=== PATIENT | male | born 1940 | race Caucasian/White ===

== ENCOUNTER 2017-02-17 14:07 | Emergency (ER) | payer OTHER ==
[~2017-02-17] VITALS: Ht 172.7 cm; Wt 80.0 kg
[~2017-02-17 14:07] MED LIST: CALC500T21 PO; CO-E50CA PO; FISH500C PO; GLUCTAB6 PO; TAB-TAB PO
[2017-02-17 14:11] VITALS: BP 151/82; PULSE 75; RESP 16; TEMP 98.4; O2SAT 95
[2017-02-17] MEDS ORDERED: MULT1TAB46 PO (14:47)
[2017-02-17] MEDS ORDERED: CALC1TAB12 PO (14:47)
[2017-02-17] MEDS ORDERED: LIPI10TA PO (14:47)
--- NOTE | 2017-02-17 14:48 | PD ---
HPI . Left hip injury Chief Complaint: Hip Injury Time Seen by Provider: 14:44 Travel History International Travel<30 days: No Contact w/Intl Traveler<30days: No Traveled to known affect area: No History of Present Illness HPI Patient presents with a chief complaint of left hip pain. He states that he fell onto his left hip 2 weeks ago. He reports pain that is getting progressively worse. He rates the pain at 8/10. Patient reports previous hardware in both hips. He is concerned about a fracture around the hardware. He is ambulatory with pain. PFSH Past Medical History Hx Anticoagulant Therapy: No Cancer: Yes (PROSTATE 5 yrs ago) Cardiovascular Problems: No High Cholesterol: Yes Chemotherapy: No Cerebrovascular Accident: No Diabetes: No Diminished Hearing: No Endocrine: No Genitourinary: Yes (PROSTATE CANCER) Hepatitis: No Hiatal Hernia: No Hypertension: No Immune Disorder: No Musculoskeletal: No Neurologic: No Psychiatric: No Respiratory: Yes Immunizations Current: Yes Radiation Therapy: No Thyroid Disease: No Tetanus Vaccination: Unknown Influenza Vaccination: No Past Surgical History Abdominal Surgery: Yes (SPLEEN REPAIR-r/t injury. LEFT ING. HERNIA REPAIR) AICD: No Appendectomy: Yes Body Medical Devices: BARBARA. LEG HARDWARE Genitourinary Surgery: Yes (TURP) Hysterectomy: No Joint Replacement: No Oral Surgery: Yes (T & A) Pacemaker: No Tonsillectomy: Yes Other Surgery: Yes Social History Alcohol Use: No Tobacco Use: No Substance Use: No Allergies-Medications (Allergen,Severity, Reaction): Coded Allergies: No Known Allergies (Verified , 02/17/17) Reported Meds & Prescriptions Reported Meds & Active Scripts Active Reported Multi Vitamin Daily (Multiple Vitamin) 1 Tab Tab 1 Tab PO DAILY Calcium 500 +D (Calcium Carbonate-Cholecalciferol) 500-400 Mg-Unit Tab 1 Tab PO DAILY Lipitor (Atorvastatin Calcium) 10 Mg Tab 10 Mg PO HS Co Enzyme Q-10 (Coenzyme Q10 (Ubidecarenone)) 50 Mg Cap 50 Mg PO DAILY Fish Oil 500 Mg Cap 500 Mg PO DAILY Glucosamine Chondroitin (Petebkldejc-Yiezkzdihtj-Wtu C-) Tab 1 Tab PO DAILY Review of Systems Except as stated in HPI: all other systems reviewed are Neg Musculoskeletal: Positive: Arthralgias, Limited ROM Skin: Positive Other (no bruising noted after the injury) Physical Exam Narrative GENERAL: Patient is sitting on the side of the bed reading a book in no distress. SKIN: Warm and dry. No bruising noted. HEAD: Normocephalic/atraumatic. EYES: Pupils are equal. Extraocular movements are intact. NECK: Full range of motion with no apparent pain. RESPIRATORY: Nonlabored respirations. MUSCULOSKELETAL: Tender in the area of the left greater trochanter. No shortening or malrotation of the hip. He is able to stand on it. NEUROLOGICAL: Nonfocal. PSYCHIATRIC: Appropriate mood and affect. Data Data Last Documented VS Vital Signs Date Time Temp Pulse Resp B/P (MAP) Pulse Ox O2 Delivery O2 Flow Rate FiO2 02/17/17 14:40 16 95 Room Air 02/17/17 14:11 98.4 75 151/82 (105) Orders Orders Hip, Uni(Ap&Lat) W Ap Pelvis (02/17/17 14:30) [facility] Medical Decision Making Medical Screen Exam Complete: Yes Emergency Medical Condition: Yes Differential Diagnosis Differential diagnosis of extremity trauma includes but is not limited to fracture, sprain or strain, dislocation, contusion Narrative Course This patient presents for evaluation of left hip injury. X-rays are pending. Hip X-ray: 1. Diffuse osteopenia with bilateral femoral fixation hardware in place. Hardware is intact. 2. Foreshortening of the left femoral neck without a definite cortical step-off to suggest acute fracture. This may be projectional. Further imaging with CT and MRI are likely not significantly beneficial due to significant anticipated artifact from existing hardware. Followup imaging in approximately 10-14 days may be performed if there is continued clinical concern. Diagnosis Primary Impression: Contusion of left hip Qualified Codes: S70.02XA - Contusion of left hip, initial encounter Patient Instructions: General Instructions, Hip Contusion (ED) Med/Other Pt SpecificInfo: Prescription(s) given Scripts Tramadol (Ultram) 50 Mg Tab 50 MG PO Q4H Y for PAIN, #12 TAB 0 Refills Prov: Krupa Diaz MD 02/17/17 Disposition: 01 DISCHARGE HOME Condition: Stable Krupa Diaz MD Feb 17, 2017 14:48
--- NOTE | 2017-02-17 14:59 | RADRPT ---
EXAM DATE/TIME: 02/17/2017 14:42 [place] COMPARISON: No previous studies available for comparison. INDICATIONS : Fall two weeks ago. Pain in left hip MEDICAL HISTORY : None. SURGICAL HISTORY : None. ENCOUNTER: Initial ACUITY: 2 weeks PAIN SCORE: 6/10 LOCATION: Left Hip FINDINGS: Osseous structures are diffusely osteopenic. There are bilateral hip fixation hardware in place. Hard strong appears intact without evidence for significant loosening. There is some foreshortening of the l eft femoral neck without a definite cortical step-off. Remaining osseous structures appear intact. 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 Osse ous structures are unremarkable. CONCLUSION: 1. Diffuse osteopenia with bilateral femoral fixation hardware in place. Hardware is intact. 2. Foreshortening of the left femoral neck without a definite cortical step-off to suggest acute frac ture. This may be projectional. Further imaging with CT and MRI are likely not significantly benefici al due to significant anticipated artifact from existing hardware. Followup imaging in approximately 10-14 days may be performed if there is continued clinical concern. José Luis Serrano MD on February 17, 2017 at 14:53 Board Certified Radiologist. This report was verified electronically.
[2017-02-17] MEDS ORDERED: ULTR50TA5 PO (15:07)
== END 2017-02-17 15:33 | disposition home or self-care (01) ==
LOC: PHED 14:07
DX: S70.02XA Contusion of left hip, initial encounter (principal); E78.00 Pure hypercholesterolemia, unspecified; Z85.46 Personal history of malignant neoplasm of prostate; Z87.09 Personal history of other diseases of the respiratory system; W19.XXXA Unspecified fall, initial encounter
CPT/HCPCS: 73502; 99283